=== PATIENT | female | born 1960 | race Two or more races ===

== ENCOUNTER → 2024-04-21 | Outpatient (CLI) | payer BC, SELFPAY ==
--- NOTE | 2024-04-21 09:00 | XR_ITS ---
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 supine abdomen demonstrates nonobstructive bowel gas pattern Surgical clips upper right abdomen Patient swallowed thin barium with 13 spot films obtained of the esophagus stomach duodenal bulb and duodenal sweep Fluoroscopy 0.06 minutes Primary peristaltic esophageal waves noted Mild gastroesophageal reflux There is no stricture the gastroesophageal junction Contrast empties readily into the stomach with no gastric mass deformity or ulceration Duodenal bulb expands symmetrically Duodenal sweep and small bowel loops visualized unremarkable IMPRESSION: Mild gastroesophageal reflux No stricture the gastroesophageal junction No gastric mass deformity or ulceration Negative for duodenitis
--- NOTE | 2024-04-21 09:30 | XR_ITS ---
Examination: Abdomen sonogram, complete Date and time of exam: April 21, 2024 0939 hours INDICATIONS: Mid abdominal pain and nausea intermittent beginning 2 years ago. Technique: Multiple real-time grayscale transabdominal sonographic images of the abdomen have been obtained. Findings: Absent gallbladder Normal common bile duct 0.3 cm Pancreatic head 2.6 cm Aorta not enlarged Liver 12.6 cm fatty infiltration smooth contour no focal liver lesions Normal hepatopedal portal venous flow Patent IVC Right kidney 10.5 x 5.8 x 5.5 cm cortex 1.6 cm Left kidney 10.7 x 5.4 x 4.9 cm cortex 1.7 cm No hydronephrosis Spleen 10.3 cm IMPRESSION:: Absent gallbladder Normal common bile duct Fatty liver
== END | disposition home or self-care (01) ==
PROVIDERS: PCP Independent Medical Examiner; Referring Provider Physician Assistant; Visit Provider Physician Assistant
DX: K21.9 Gastro-esophageal reflux disease without esophagitis (principal); K76.0 Fatty (change of) liver, not elsewhere classified; Z90.49 Acquired absence of other specified parts of digestive tract
CPT/HCPCS: 74240; 76700